=== PATIENT | female | born 1950 | race Caucasian/White ===

== ENCOUNTER 2019-04-08 11:48 | Emergency (ER) | payer OTHER ==
[2019-04-08 11:52] VITALS: BP 117/76; PULSE 59; TEMP 98.6; BMI 30.1
--- NOTE | 2019-04-08 11:57 | PDOC ---
History of Present Illness - General Chief Complaint: Injury Stated Complaint: left wrist pain s/p unwitnessed fall Time Seen by Provider: 04/08/19 11:51 History Source: Patient Exam Limitations: No Limitations - History of Present Illness Initial Comments: 04/08/19 11:52 69 y/o female fell in bathroom yesterday and complains of left wrist pain. Took Advil for the pain. Also hit left eye with bruising today, but no headache, LOC , pain or neck pain. Feels fine otherwise except for her left wrist. No fever or chills. Denies chest pain or SOB. Severity: mild Associated Symptoms: denies: headaches, syncope Past History - Past Medical History Allergies/Adverse Reactions: Allergies Allergy/AdvReac Type Severity Reaction Status Date / Time pregabalin [From Lyrica] Allergy Severe Verified 04/08/19 11:50 tramadol Allergy Severe Verified 04/08/19 11:50 codeine [Codeine] Allergy Nausea Verified 04/08/19 11:50 triamcinolone acetonide Allergy Swelling Verified 04/08/19 11:50 [From Kenalog] Home Medications: Ambulatory Orders Atenolol [Tenormin -] 50 mg PO BID 10/05/12 Simvastatin [Zocor -] 0 mg PO HS 10/05/12 Venlafaxine HCl [Effexor] 0 mg PO DAILY 10/05/12 Amlodipine Besylate [Norvasc -] 2.5 mg PO DAILY 04/08/19 Fenofibrate 160 mg PO DAILY 04/08/19 Gabapentin 800 mg PO TID 04/08/19 Metformin HCl [Glucophage] 500 mg PO BID 04/08/19 Nortriptyline HCl [Pamelor -] 75 mg PO HS 04/08/19 [place]ristow-3 Fatty Acids/Fish Oil [Fish Oil 1,000 mg Capsule] 1 each PO DAILY Sitagliptin Phos/Metformin HCl [Janumet 50-500 mg Tablet] 1 each PO DAILY Tramadol HCl 50 mg PO DAILY PRN 04/08/19 COPD: No Diabetes: Yes HTN: Yes Hypercholesterolemia: Yes Other medical history: neuropathy - Surgical History Cholecystectomy: Yes - Suicide/Smoking/Psychosocial Hx Smoking Status: No Smoking History: Never smoked Number of Cigarettes Smoked Daily: 0 Review of Systems - Review of Systems Able to Perform ROS?: Yes Is the patient limited [place] proficient: No Constitutional: No: Chills, Fever HEENTM: No: Eye Pain Respiratory: No: Shortness of Breath Cardiac (ROS): No: Chest Pain, Palpitations Musculoskeletal: No: Back Pain, Neck Pain Integumentary: Yes: Bruising Neurological: No: Headache All Other Systems: Reviewed and Negative *Physical Exam - Physical Exam General Appearance: Yes: Nourished, Appropriately Dressed. No: Apparent Distress HEENT: positive: EOMI, JACQUES, Normal ENT Inspection, Pharynx Normal, Scleral Icterus (R), Scleral Icterus (L), Other (ecchymosis to left eyelid, no tenderness or step off seen, no swelling) Neck: positive: Trachea midline, Normal Thyroid, Supple. negative: Tender, Rigid, Carotid bruit Respiratory/Chest: positive: Lungs Clear, Normal Breath Sounds. negative: Chest Tender, Respiratory Distress Cardiovascular: positive: Regular Rhythm, Regular Rate, S1, S2. negative: Edema , JVD, Murmur Vascular Pulses: Femoral (R): 4+, Femoral (L): 4+, Carotid (R): 4+, Carotid (L) : 4+, Dorsalis-Pedis (R): 4+, Doralis-Pedis (L): 4+ Gastrointestinal/Abdominal: positive: Normal Bowel Sounds, Flat, Soft. negative : Tender, Organomegaly Lymphatic: negative: Adenopathy, Tenderness, Other Musculoskeletal: positive: Normal Inspection. negative: CVA Tenderness Extremity: positive: Normal Capillary Refill, Normal Inspection, Normal Range of Motion, Tender (tender to left wrist on palpation with mild swelling, full ROM, no ecchymosis or erythema noted), Swelling Integumentary: positive: Normal Color, Dry, Warm. negative: Erythema, Ecchymosis, Bruising Neurologic: positive: accounting officer II-XII NML intact, Fully Oriented (pulses 2+/4 b/l in UE, no focal deficits no compartment syndrome to left wrist noted), Alert, Normal Mood/Affect, Normal Response, Motor Strength 5/5 ED Treatment Course - ADDITIONAL ORDERS Additional order review: 04/08/19 12:43 Left wrist pain will x-ray to r/o fracture Left wrist x-ray + distal radial fracture/styloid fracture Ice, Motrin, rest Splint Follow up with Orthopedics If worsen return to ER 04/08/19 12:54 - RADIOLOGY Radiology Studies Ordered: Category Date Time Status WRIST-LEFT [RAD] Stat Radiology 04/08/19 11:51 Ordered 04/08/19 12:53 distal radial styloid fracture (left) *DC/Admit/Observation/Transfer Diagnosis at time of Disposition: Radial styloid fracture Qualifiers: Encounter type: initial encounter Fracture type: closed Fracture alignment: nondisplaced Laterality: left Qualified Code(s): S52.515A - Nondisplaced fracture of left radial styloid process, initial encounter for closed fracture - Discharge Dispostion Disposition: HOME Condition at time of disposition: Stable Decision to Admit order: No - Referrals Referrals: Deonte Prajapati MD [Staff Physician] - - Patient Instructions Printed Discharge Instructions: DI for Wrist Fracture Additional Instructions: Ice, Motrin, rest Splint Follow up with Orthopedics If worsen return to ER - Post Discharge Activity
== END 2019-04-08 13:06 | disposition home or self-care (01) ==
LOC: FER 11:48
DX: S52.515A Nondisplaced fracture of left radial styloid process, initial encounter for closed fracture (principal); I10 Essential (primary) hypertension; E11.9 Type 2 diabetes mellitus without complications; E78.00 Pure hypercholesterolemia, unspecified
CPT/HCPCS: 73110-TC-LT-FY; 99282-25